=== PATIENT | female | born 1995 | race Caucasian/White ===

== ENCOUNTER 2017-03-13 01:08 | Emergency (ER) | payer OTHER ==
[2017-03-13] MEDS ORDERED: ONDANSETRON 4 MG/2 ML VIAL IVP ONE (01:13)
[2017-03-13] MEDS ORDERED: NS 1,000 ML IV ONE (01:13)
--- NOTE | 2017-03-13 01:15 | EDPHY ---
H & P HPI/ROS: HPI CHIEF COMPLAINT: Alcohol Intoxication HISTORY OF PRESENT ILLNESS: Patient very pleasant 21-year-old female she presents emergency room with acute alcohol intoxication. She was with friends lying at the per history mold she was unable to ambulate 911 was called EMS make contact with her she did ambulate slightly to the stretcher. However has been highly intoxicated with alcohol very sleepy and vomited. Zofran was given in route. Upon arrival here to the emergency room the patient is very sleepy smells of alcohol. Has emesis down her clothes. No trauma reported. Past Medical History: No significant medical history Past Surgical History: No significant surgical history Social History: [employer] student, occasional alcohol use, denies drugs or tobacco Family History: Noncontributory ROS REVIEW OF SYSTEMS: A comprehensive 10 point review of systems is otherwise negative aside from elements mentioned in the history of present illness. Exam Constitutional Intoxicated, triage nursing summary reviewed, vital signs reviewed, Sleepy, smells of alcohol Eyes normal conjunctivae and sclera, horizontal beating nystagmus consistent acute alcohol intoxication, otherwise pupils equal and react to light HENT normal inspection, atraumatic, moist mucus membranes, no epistaxis, neck supple/ no meningismus, no raccoon eyes. Respiratory clear to auscultation bilaterally, normal breath sounds, no respiratory distress, no wheezing. Cardiovascular rate normal, regular rhythm, no murmur, no edema, distal pulses normal. Gastrointestinal soft, non-tender, no rebound, no guarding, normal bowel sounds, no distension, no pulsatile mass. Genitourinary no CVA tenderness. Musculoskeletal no midline vertebral tenderness, full range of motion, no calf swelling, no tenderness of extremities, no meningismus, good pulses, neurovascularly intact. Skin pink, warm, & dry, no rash, skin atraumatic. Neurologic sleepy, intoxicated with alcohol,, alert and oriented x 3, AAOx3, moves all 4 extremities equally, motor intact, sensory intact, CN II-XII intact , , normal vision, normal speech. Psychiatric normal mood/affect. Heme/Lymph/Immune no lymphadenopathy. Differential Diagnosis: Includes but is not limited to in a particular order acute alcohol intoxication, alcohol abuse, dehydration, electrolyte abnormality , nausea vomiting from acute alcohol intoxication Medical Decision Making: Plan for this patient should receive IV fluid bolus and IV Zofran for nausea vomiting in the setting of alcohol. Check alcohol level. Monitor closely. Monitor for sobriety. Re-evaluation: Blood alcohol 272. Time blood alcohol 2:00 a.m.. 0402AM: Patient ambulated well throughout the emergency room without difficulty no ataxic clinically sober safe for discharge. She will be discharged to the [facility]. Source: Patient, EMS Constitutional: Initial Vital Signs Temperature (C) 36.9 C 03/13/17 01:15 Heart Rate 74 03/13/17 01:15 Respiratory Rate 16 03/13/17 01:15 Blood Pressure 116/78 03/13/17 01:15 O2 Sat (%) 95 03/13/17 01:15 O2 Delivery Mode Room Air Allergies/Adverse Reactions: No Known Allergies Allergy (Unverified 03/13/17 01:16) Home Medications: Medication Instructions Recorded NK [No Known Home Meds] 03/13/17 Medical Decision Making - Data Points Laboratory Results: 03/13/17 01:12 Ethyl Alcohol 272 mg/dL H mg/dL (0-10) Medications Given: Discontinued Medications Sodium Chloride (Ns) 1,000 mls @ 0 mls/hr IV ONCE ONE PRN Reason: Wide Open Stop: 03/13/17 01:14 Last Admin: 03/13/17 01:30 Dose: 1,000 mls Ondansetron HCl (Zofran) 4 mg IVP EDNOW ONE Stop: 03/13/17 01:14 Last Admin: 03/13/17 02:31 Dose: 4 mg Departure - Departure Disposition: Home, Routine, Self-Care Clinical Impression: Alcoholic intoxication Qualifiers: Complication of substance-induced condition: uncomplicated Qualified Code(s): F10.120 - Alcohol abuse with intoxication, uncomplicated Condition: Good Instructions: Alcohol Intoxication (ED) Referrals: Patient,NotPresent [Primary Care Provider] - As per Instructions
[2017-03-13 01:17] VITALS: RESP 16
[2017-03-13 01:49] LABS: ETHANOL SERUM 272 mg/dL (0-10)
[2017-03-13 04:05] VITALS: BP 118/72; PULSE 88; TEMP 98.1; O2SAT 96
== END 2017-03-13 04:17 | disposition home or self-care (01) ==
DX: F10.120 Alcohol abuse with intoxication, uncomplicated (principal)
CPT/HCPCS: 96374; G0480; J2405